=== PATIENT | female | born 1925 | race Caucasian/White ===

== ENCOUNTER 2016-10-09 17:50 | Inpatient (IN) | payer MEDICARE ==
[~2016-10-09] VITALS: Ht 160 cm; Wt 72.7 kg
[2016-10-09] VITALS (7 sets, daily range): BP systolic 103–133; BP diastolic 49–72
--- NOTE | ~2016-10-09 | O ---
[place], [place] OPERATIVE NOTE [id number] UN[facility] #: [id number] ROOM: 528 DOCTOR: YOGESH CHEN,MERNA BIRTHDATE: [birth year] DOS: 10/09/2016 HISTORY OF PRESENT ILLNESS: This is an 89-year-old patient who presented with chief complaint of hematemesis, undergoing investigation. Her prolonged INR has been corrected. Coumadin has been placed on hold. PROCEDURE: Today's procedure part of investigation is panendoscopy plus biopsy and photographic series of the esophagus ulcers. PREMEDICATION: Versed and Diprivan. SCOPE: Olympus folding gastroscope Q10 video. REPORT: After putting the patient in the left lateral position and after application of lubricant to the scope, the scope was introduced. Thereafter, under direct visualization, I advanced through the length of esophagus without difficulty. Esophagus cervicothoracic distally carefully examined. Diffuse distal esophageal ulcerations were identified. Moderate size hiatal hernia noticed. Gastric pouch was entered. Gastritis seen. Duodenal bulb, second and third part within normal limits. Superficial biopsy of distal esophageal ulcer and scar was obtained for documentation avoiding deep tissue biopsy. The patient tolerated the procedure well. IMPRESSION: Diffuse distal esophageal ulcer, hiatal hernia, gastritis, status post biopsy. PLAN AND DISCUSSION: We are going to keep this patient on Protonix 40 mg IV b.i.d., sucralfate 2 grams to be sipped q.6h. at the bedside, Gaviscon 2 tablets chew p.c. meals, antireflux with elevation of the head of the bed. We will hold off anticoagulation today and tomorrow and clinical reassessment. MERNA ZUÑIGA MD CM:OPRECORD:OPERATIVE NOTE [id number] MERNA ZUÑIGA MD 12/02/16 0947 interface
--- NOTE | ~2016-10-09 | PR ---
[place], [place] PROGRESS NOTE NAME: ANTIONETTE ONEAL [facility] #: [id number] UNIT #: [id number] ROOM: 528 DOCTOR: SAVANNA MATSON MD BIRTHDATE: [birth year] DOS: 10/12/2016 I am seeing this patient on behalf of Dr. Harding. She is lying in bed. She has a mild cough with rattling chest. She is mildly short of breath, but does not complain of any chest pain or palpitations. She feels little stronger than when she came into the hospital. Her appetite is fair. PHYSICAL EXAMINATION: GENERAL: Reveals a patient who is alert, oriented. VITAL SIGNS: Pulse is irregular at 74 beats per minute, blood pressure 105/61, previous blood pressure was better. NECK: Normal JVP. CARDIOVASCULAR: Cardiac auscultation reveals irregular heart rate. No murmur, and she has rhonchi in both lungs with reduced breath sounds and 2+ edema in the left leg and 1+ in the right leg. LABORATORY DATA: Monitor shows atrial fibrillation with the rate in the 70-90s per minute. Chest x-ray demonstrated no pulmonary edema, heart was of normal size. IMPRESSION: 1. This patient has chronic atrial fibrillation with controlled ventricular rate. 2. There is no evidence of heart failure. Edema in the lower extremities is likely to be noncardiac. Serum albumin was 3.0 on admission, hypoalbuminemia is not a cause for this edema. No new recommendations are offered. SAVANNA MATSON MD CM:PNTRANS [id number] SAVANNA MATSON MD 11/19/16 1054 interface
--- NOTE | ~2016-10-09 | DS ---
[place], [place] DISCHARGE SUMMARY NAME: ANTIONETTE ONEAL [facility] #: [id number] UNIT #: [id number] ROOM: 528 DOCTOR: CHARLIE CORRIGAN MD BIRTHDATE: [birth year] DOS: 10/15/2016 DISCHARGE DIAGNOSES: 1. Atrial fibrillation with rapid ventricular response. 2. Urinary tract infection with Klebsiella and Enterococcus faecalis. 3. Esophageal ulcer, status post gastrointestinal bleed. 4. T10 compression fracture, refused vertebroplasty. 5. Adult failure to thrive. 6. Hypokalemia. 7. Asthmatic bronchitis. HOSPITAL COURSE: This patient is 89 years old, comes in with cough and shortness of breath and not feeling good. She was treated with Tamiflu recently, but continued to have pain, also continued to have pain in the middle of the back. She was diagnosed with acute compression fracture of T10. She also had AFib with rapid ventricular response, UTI with Klebsiella pneumoniae and Enterococcus faecalis. Adjustments and antibiotics were made. Her Coumadin was put on hold. Fresh frozen plasma and vitamin K was given. ProTime has come down and normalized. Dr. Harding and Dr. Gomez has seen the patient. Dr. Harding is aware of the fact that the patient is not on Coumadin right now, will restart at a later date when the esophageal ulcer is resolved. She will take medications for about a month and then restart the medicine at that time. A PICC line will be placed. The patient was scheduled for a vertebroplasty, but refused. Social Service was consulted and the patient to go to a rehab center today. DISCHARGE MEDICATIONS: Discharge medications will be Xopenex 0.63 q.4 hours, metoprolol 50 t.i.d., digoxin 0.125 daily p.o., Colace 100 mg daily, Carafate 2 grams q.i.d., warfarin is on hold, Xanax 0.25 twice a day p.r.n., potassium 10 daily, lovastatin 10 daily, multivitamin with iron and folic acid 1 tablet daily, Biofreeze daily p.r.n. to the back, [place] 7.5 q.i.d. p.r.n., omeprazole 40 daily, Lasix 40 daily, vancomycin 1500 mg daily 7 doses, Rocephin 1 g IV daily for 7 more doses. The discontinued meds are Tribenzor and warfarin, instead she is placed on losartan 100 mg daily. Please do a CBC, basic, digoxin level in a week and please call Dr. Harding as regards to when the Coumadin needs to be restarted. [place], [place] DISCHARGE SUMMARY NAME: ANTIONETTE ONEAL UNIT #: [id number] ROOM: 528 DOCTOR: CHARLIE CORRIGAN MD BIRTHDATE: [birth year] CHARLIE CORRIGAN MD CM:DISCHARG [id number] CHARLIE CORRIGAN MD 10/16/16 0141 interface
--- NOTE | ~2016-10-09 | WRIGHTHP ---
[place], [place] PATIENT HISTORY AND PHYSICAL EXAM NAME: ANTIONETTE ONEAL [facility] #: [id number] UNIT #: [id number] ROOM: 528 DOCTOR: CHARLIE CORRIGAN MD BIRTHDATE: [birth year] DOS: 10/09/2016 HISTORY OF PRESENT ILLNESS: The patient is 89 years old. This patient is very well known to us. She called about 3 days ago and stated that she was having aches and pains all over, low-grade fever, nausea, emesis, and some diarrhea. She was prescribed Tamiflu, but then yesterday, started developing severe back pain in the middle of the back, mostly when she coughs. She does not have any chest pains or palpitations, but when she arrived to the Emergency Room, she was also found to have AFib with rapid ventricular response. She denies having any chest pains this morning. PAST MEDICAL HISTORY: Significant for: 1. Frailty with falls. 2. Repeated UTIs. 3. Adult failure to thrive. 4. Benign hypertension. 5. Chronic atrial fibrillation. 6. Osteoarthritis of hips, knees, and low back. 7. Small vessel disease of brain. 8. Mixed hyperlipidemia. MEDICATIONS: Medications that she is on are Xanax 0.25 b.i.d., Nexium 40 daily, Lasix 40 daily, [place] 7.5 q.i.d., lovastatin 10 daily, multivitamin one tablet daily, Tribenzor 1 tablet daily, potassium 10 daily, warfarin 2.5 daily. SOCIAL HISTORY: Nonsmoker, does not using alcohol. Lives at home alone. PHYSICAL EXAMINATION: GENERAL: She is awake and alert and oriented. VITAL SIGNS: Blood pressure is 115/61, pulse of 82, respirations 18. NECK: Supple. No lymph nodes. LUNGS: Diminished breath sounds. No wheezes, rales, or rhonchi heard. HEART: Regular. ABDOMEN: Obese, soft, nontender. EXTREMITIES: Without any edema. BACK: Some tenderness across the middle of the back. ASSESSMENT AND PLAN: 1. The patient admitted with atrial fibrillation with rapid ventricular response. IV Cardizem was given in the Emergency Room. Dr. Harding was consulted. He already gave her Lopressor and digoxin was also added. This morning, her heart rate is actually on the low side, so we will cut back on the metoprolol dosage, probably avoid; also discontinue the digoxin. 2. Benign hypertension. Restart Cozaar, but avoid hydrochlorothiazide and Norvasc. 3. Acute back pain, possibly from a compression fracture. X-ray of the thoracic spine will be ordered. MRI has been ordered of the thoracic spine, but unfortunately it is a long weekend and we may not be able to get the MRI done for the next few days. So x-ray of the thoracic spine will be ordered. The [place], [place] PATIENT HISTORY AND PHYSICAL EXAM [facility]: [id number] UN[facility] #: [id number] ROOM: 528 DOCTOR: CHARLIE CORRIGAN MD BIRTHDATE: [birth year] patient is already on pain medications. PT, OT consult and a Social Service consult also we need to be obtained for snf placement, which the patient has refused in the past. 4. Chronic long-term use of anticoagulants. Protime on the high side. Coumadin is on hold. We will recheck the protime. CHARLIE CORRIGAN MD CM:HISPHYS:PATIENT HISTORY AND PHYSICAL EXAMINATION 8 CHARLIE CORRIGAN MD 10/10/1628 interface
--- NOTE | ~2016-10-09 | CON ---
[place], [place] REPORT OF CONSULTATION NAME: ANTIONETTE ONEAL [facility] #: [id number] UNIT #: [id number] ROOM: 528 [facility] BIRTH[facility]: [birth year] DOS: HISTORY OF PRESENT ILLNESS: The patient is very well known to me, chronic patient is an 89-year-old with persistent atrial fibrillation on chronic Coumadin therapy. The patient had a low grade fever. She is having aches and pains all over. The patient developed severe back pain in the middle of her back, mostly when she is coughing. Does not have any other chest pain or palpitations. When she arrived, the patient was found to be in rapid atrial fibrillation. Denies having any chest pain or shortness of breath. The patient has been evaluated and GI consult has been obtained and they had an EGD basically revealing hiatal hernia and possible ulceration. PAST MEDICAL HISTORY: Significant for repeated UTIs, frequent falls, diastolic heart failure, persistent atrial fibrillation and mixed hyperlipidemia. MEDICATIONS: The patient is on Xanax, Nexium, Lasix, [place], lovastatin, multivitamin, esomeprazole, potassium, Coumadin. SOCIAL HISTORY: Nonsmoker, does not use alcohol, lives at home alone, being followed by her daughter and son. REVIEW OF SYSTEMS: CONSTITUTIONAL: No fever, no chills. HEENT: No visual disturbances. Does have hearing problems. NEUROLOGICAL: No syncope. CARDIOVASCULAR: Has palpitations. RESPIRATORY: Has chronic dyspnea with exertion. EXTREMITIES: Have intermittent bilateral leg edema. All other review of systems are negative. PHYSICAL EXAMINATION: GENERAL: The patient awake, alert and oriented. Heart rate is much better controlled when she was in atrial fibrillation earlier. VITAL SIGNS: Blood pressure is 115/60, pulse rate is 88, 96% on room air. NECK: Supple, no JVD. LUNGS: Diminished breath sounds. HEART: Sounds are irregularly irregular. ABDOMEN: Soft, nontender. NEUROLOGIC: Stable. EXTREMITIES: About 2+ edema. LABORATORY DATA: Hemoglobin 10.3, hematocrit 30.4, potassium is 3.1. Electrolytes are normal. Troponin is negative. The last INR was yesterday at 2.6. IMPRESSION: The patient with persistent atrial fibrillation with rapid ventricular response, anemia, peptic ulcer disease. RECOMMENDATIONS: As per the GI, continue the Carafate, continue the Protonix, simvastatin, diltiazem, metoprolol and adjust the metoprolol and wean off the [place], [place] REPORT OF CONSULTATION NAME: ANTIONETTE ONEAL UNIT #: [id number] ROOM: 528 DOCTOR: YARA BENTON MD BIRTHDATE: [birth year] Cardizem drip, losartan and Lasix. Keep the INR little bit on the lower side, probably around 2 when it is okay with GI and we will follow up. YARA BENTON MD CM:CONSTR:REPORT OF CONSULTATION 0723 11/19/16 1103 interface
--- NOTE | ~2016-10-09 | PR ---
[place], [place] PROGRESS NOTE NAME: ANTIONETTE ONEAL [facility] #: [id number] UNIT #: [id number] ROOM: 528 DOCTOR: CHARLIE CORRIGAN MD BIRTHDATE: [birth year] DOS: SUBJECTIVE: The patient is coughing a lot of whitish mucus now. Cough is quite wet sounding. OBJECTIVE: VITAL SIGNS: Graphic trend shows a pressure of 112/54, pulse of 86, respirations 18, temperature 97.4. LUNGS: Diminished breath sounds, a few scattered rhonchi heard. HEART: Irregular. ABDOMEN: Obese, soft. EXTREMITIES: No edema. ASSESSMENT AND PLAN: 1. Atrial fibrillation with rapid ventricular response, under control now with medications. 2. Esophageal ulcer with coffee-ground emesis. The patient is off Coumadin. Discuss with Dr. Gomez and Dr. Valenzuela. The patient's CBC does not show any further drop in the hematocrit, hemoglobin is 10.5. 3. Acute asthmatic bronchitis. Chest x-ray was negative. We will go ahead and arrange repeat chest x-ray. Low-dose IV steroids will be added and continue Rocephin. 4. UTI with gram-negative bacteria, more than 100,000, no identification available, we will adjust antibiotics after we get the culture reports back. 5. Hypokalemia of 2.8, potassium supplementation will be ordered. CHARLIE CORRIGAN MD CM:PNTRANS [id number] CHARLIE CORRIGAN MD 10/12/161957 interface
--- NOTE | ~2016-10-09 | CON ---
[place], [place] REPORT OF CONSULTATION NAME[facility] [id number] UNIT #: [id number] ROOM: 528 DOCTOR: MERNA ZUÑIGA MD BIRTHDATE: [birth year] DOS: HISTORY OF PRESENT ILLNESS: The patient is an 89-year-old who was presented with hematemesis and has been on anticoagulant Coumadin. Coumadin has been on hold; however, her INR has been prolonged 4.3 with PT of 47. The patient has been given vitamin K and fresh frozen plasma because of hematemesis. The patient continued with cough and no acute chest x-ray finding was noticed. Urinalysis was unremarkable except for 1+ blood and 2+ bacteria. Electrolytes were balanced, potassium of 3.1 has been addressed. Her platelet count remained 326. Her INR corrected to 2.6 at 2:30 and is expected to have been improved by now, which is 5 o'clock. PAST MEDICAL HISTORY: Associated with hypertension, atrial fibrillation, hyperlipidemia and UTI. FAMILY HISTORY: Noncontributory. MEDICATIONS: Medication list has been reviewed. PAST SURGICAL HISTORY: Hip and cholecystectomy and left arm orthopedic repairs. ALLERGIES: TO PENICILLIN. SOCIAL HISTORY: Nonsmoker, nonalcohol consumer. REVIEW OF SYSTEMS: HEENT: Denies double vision or blurred vision. RESPIRATORY: Denies shortness of breath. Have cough. CARDIOVASCULAR: Denies chest pain. DIGESTIVE SYSTEM: Hematemesis. NEUROMUSCULOSKELETAL: Denies muscle wasting or tremens; however, she has had fragility of her ambulation. PHYSICAL EXAMINATION: VITAL SIGNS: Stable. GENERAL: Alert and oriented. HEENT: Head normocephalic, nontraumatic. Mouth and buccal mucosa benign. NECK: Supple, no thyromegaly, no cervical lymphadenopathy. CHEST: Symmetric anatomy, equal expansion. Decreased air entry bilaterally. HEART: Atrial fibrillation, with moderate ventricular response. ABDOMEN: Soft. No hepato-organomegaly. Bowel sounds present. No pulsatile mass. EXTREMITIES: No cyanosis, no pedal edema. NEUROLOGICAL: Alert, oriented to time, place and person. IMPRESSION: Hematemesis, history of Coumadin. Coumadin on hold, prolonged INR, status post fresh frozen plasma, status post vitamin K and correction of the above. PLAN AND DISCUSSION: Since we have atrial fibrillation on board and the patient [place], [place] REPORT OF CONSULTATION NAME: ANTIONETTE ONEAL UNIT #: [id number] ROOM: 528 DOCTOR: MERNA ZUÑIGA MD BIRTHDATE: [birth year] has hematemesis, we are concerned as to how and when to start anticoagulation again for this, we have to rule out etiology of hemetemesis and for this, an endoscopy of upper tract is going to be organized. Other adjunctive diagnoses as identified in paragraph past medical and surgical history. Workup in progress, EGD is organized. MERNA ZUÑIGA MD CM:CONSTR:REPORT OF CONSULTATION 1711 10/11/16 8705 interface
--- NOTE | ~2016-10-09 | PR ---
[place], [place] PROGRESS NOTE NAME: ANTIONETTE ONEAL [facility] #: [id number] UNIT #: [id number] ROOM: 528 DOCTOR: CHARLIE CORRIGAN MD BIRTHDATE: [birth year] DOS: 10/13/2016 SUBJECTIVE: The patient has the cough. Does not have any new complaints. OBJECTIVE: VITAL SIGNS: Graphic trend shows a pressure of 124/69, pulse of 100, respirations 20, temperature 97.6. LUNGS: Diminished breath sounds, less wheezing this morning. HEART: Regular. ABDOMEN: Obese, soft. EXTREMITIES: Without any edema. Trace edema noticed in the sacral area. LABORATORY DATA: Urine culture shows Klebsiella pneumoniae and Enterococcus faecalis. Klebsiella pneumoniae is sensitive to the cephalosporin that he is on, for the Enterococcus faecalis may have to order vancomycin because the patient is allergic to PENICILLIN. ASSESSMENT AND PLAN: 1. Urinary tract infection with Klebsiella and Enterococcus faecalis, adjustments and antibiotics to be made. 2. Coffee ground emesis with the esophageal ulcer. The patient's Coumadin is on hold, on IV medications. 3. T10 compression fracture, which is acute. MRI of the thoracic spine is ordered and may require a vertebroplasty. 4. Hypokalemia. Supplementation was given yesterday and the labs this morning shows still low potassium at 2.9, further supplementation will be given. 5. Acute bronchitis with bronchospasm on IV steroids and antibiotics. 6. Failure to thrive. The patient to go to a custodial home. Social service will be consulted. CHARLIE CORRIGAN MD CM:PNTRANS [id number] CHARLIE CORRIGAN MD 10/13/16 2204 interface
--- NOTE | ~2016-10-09 | PR ---
[place], [place] PROGRESS NOTE [id number] #: [id number] ROOM: 528 DOCTOR: YARA BENTON MD BIRTHDATE: [birth year] DOS: SUBJECTIVE: A 24-hour events noted. Discussed with the nursing staff. Heart rate was significantly increased to 130s-140s yesterday. Metoprolol has been increased. Her blood pressure is much better 129/84. She was slightly wet and she received Lasix yesterday. Breathing is better. OBJECTIVE: VITAL SIGNS: Pulse rate of 102 with atrial fibrillation. NECK: Supple, elevated JVD. LUNGS: Diminished breath sounds. HEART: Sounds are irregularly irregular. ABDOMEN: Soft, nontender. NEUROLOGIC: Stable. LABORATORY DATA: Hemoglobin 9.5, hematocrit 28.1. Electrolytes are normal. Creatinine is 0.7. Last INR is 2.0. The repeat is still pending. IMPRESSION: The patient with atrial fibrillation with rapid ventricular response with gastrointestinal bleed. RECOMMENDATIONS: Continue the metoprolol 50 mg 3 times a day because of the significant rapid heart rate. Blood pressure is feasible. Continue the potassium and the Lasix. Continue the IV antibiotics and steroids. Resume the anticoagulation when feasible and I will follow up. YARA BENTON MD CM:PNTRANS 0721 0110 YARA BENTON MD 10/15/16 0109 interface
--- NOTE | ~2016-10-09 | PR ---
[place], [place] PROGRESS NOTE NAME: ANTIONETTE ONEAL [facility] #: [id number] UNIT #: [id number] ROOM: 528 DOCTOR: CHARLIE CORRIGAN MD BIRTHDATE: [birth year] DOS: 10/11/2016 SUBJECTIVE: The patient is doing fine without any complaints this morning. She had a terrible last 24 hours where she had coffee-ground emesis, had to be taken for endoscopy, had episodes of up and down heart rate for which she had to be placed back on IV Cardizem, which was later discontinued when the heart rate dropped down. OBJECTIVE: VITAL SIGNS: Blood pressure is 115/58, pulse of 88, respirations 20, and temperature 98.1. LUNGS: Diminished breath sounds. HEART: Irregular. ABDOMEN: Soft. EXTREMITIES: Without any edema. ASSESSMENT AND PLAN: 1. Acute back pain with compression fracture of the T10. The patient's pain is under control, so I am not changing any medicines. 2. Esophageal ulcer with coffee-ground emesis, on Carafate and Protonix. The patient's Coumadin is on hold and will continue to remain on hold. 3. Chronic atrial fibrillation with rapid ventricular response, and at times becomes bradycardic, partly initiated by her anxiety. Discussed with Dr. Harding. He advised continued medical management. 4. Hypercoagulable state. Protime has come down to 2.0, Coumadin again on hold. 5. Recent viral syndrome, stable. CHARLIE CORRIGAN MD CM:PNTRANS [phone] CHARLIE CORRIGAN MD 10/11/162150 interface
--- NOTE | ~2016-10-09 | PR ---
[place], [place] PROGRESS NOTE NAME: ANTIONETTE ONEAL [facility] #: [id number] UNIT #: [id number] ROOM: 528 DOCTOR: CHARLIE CORRIGAN MD BIRTHDATE: [birth year] DOS: 10/15/2016 SUBJECTIVE: The patient is about the same, does not have any new complaints. Denies any chest pains, palpitations, or shortness of breath. PHYSICAL EXAMINATION: VITAL SIGNS: Pressure is 138/62, pulse of 186, respirations 18, temperature 98.2. LUNGS: Diminished breath sounds. HEART: Irregular. ABDOMEN: Obese, soft. EXTREMITIES: Without any edema. ASSESSMENT AND PLAN: 1. Chronic atrial fibrillation with rapid ventricular response, controlled. 2. Esophageal ulcer. We will restart her medications pretty soon. 3. T10 fracture. The patient was scheduled for vertebroplasty, but refused. 4. Failure to thrive. The patient to go to a alf for rehab today. PICC line will be placed for IV antibiotics for her UTI. CHARLIE CORRIGAN MD CM:PNTRANS [id number] [id number] CHARLIE CORRIGAN MD 10/16/16 0116 interface
--- NOTE | ~2016-10-09 | PR ---
[place], [place] PROGRESS NOTE NAME: ANTIONETTE ONEAL [facility] #: [id number] UNIT #: [id number] ROOM: 528 DOCTOR: YARA BENTON MD BIRTHDATE: [birth year] DOS: 10/13/2016 SUBJECTIVE: 24-hour events noted. Discussed with the nursing staff, the patient's cardiac status appears to be stable. Hemodynamically stable. OBJECTIVE: VITAL SIGNS: Blood pressure is also stable. Heart rate is well controlled to be 78 in atrial fibrillation, which is persistent, pressure is 120/80. HEENT: Unremarkable. NECK: Supple, no JVD. LUNGS: Diminished breath sounds. HEART: Sounds are irregularly irregular. ABDOMEN: Soft, nontender. LABORATORY DATA: Hemoglobin 9.5, hematocrit 28.1. Electrolytes are all normal. IMPRESSION: Acute back pain with compression fracture of T10. Pain is under control, peptic ulcer disease, coffee ground emesis, Carafate and Protonix. The patient's Coumadin is on hold. Chronic atrial fibrillation. Heart rate is very well controlled. The patient to continue the present care. Hypercoagulable. INR is 2.0, the last one. RECOMMENDATIONS: Resume the Coumadin when feasible and okay by GI and there is no active acute bleed. The patient's CHADS score is elevated. It is significantly high and she has persistent AFib. Heart rate is controlled. Continue the beta blockers, continue antibiotics as ordered. Continue the pain medications for the back pain and I will follow up. YARA BENTON MD CM:PNTRANS [phone] YARA BENTON MD 11/19/16 1100 interface
--- NOTE | ~2016-10-09 | PR ---
[place], [place] PROGRESS NOTE NAME: ANTIONETTE ONEAL [facility] #: [id number] UNIT #: [id number] ROOM: 528 DOCTOR: CHARLIE CORRIGAN MD BIRTHDATE: [birth year] DOS: SUBJECTIVE: The patient is doing fine without any complaints today. She does have periodic episodes where her heartbeat goes faster. She is currently in AFib with a controlled heart rate of below 90s. OBJECTIVE: VITAL SIGNS: Graphic trend shows a pressure of 129/84, pulse of 102, respirations 20, temperature 97.8. LUNGS: Diminished breath sounds, clear. HEART: Irregular. ABDOMEN: Soft, nontender. EXTREMITIES: Without any edema. ASSESSMENT AND PLAN: 1. Esophageal ulcer, status post GI bleed. Her Coumadin continues to be on hold. 2. Chronic atrial fibrillation with rapid ventricular response. This is also compounded by her anxiety. 3. UTI with Enterococcus faecalis and Klebsiella pneumoniae, on IV antibiotics. The patient will need placement to rehab center for continued IV antibiotics and PT, OT. 4. Failure to thrive. The patient is receiving PT, OT and social service has been consulted for placement to rehab center. 5. Hypokalemia, supplementation was given. Repeat potassium is pending. She is going for a vertebroplasty today of T10. CHARLIE CORRIGAN MD CM:PNTRANS [phone] CHARLIE CORRIGAN MD 10/15/16 0457 interface
--- NOTE | ~2016-10-09 | PR ---
[place], [place] PROGRESS NOTE NAME: ANTIONETTE ONEAL [facility] #: [id number] UNIT #: [id number] ROOM: 528 DOCTOR: SAVANNA MATSON MD BIRTHDATE: [birth year] DOS: 10/15/2016 SUBJECTIVE: I am seeing this patient on behalf of Dr. Harding. This elderly lady has atrial fibrillation and also had a cough and some shortness of breath. She has not had any palpitations, but has a cough which is nonproductive. Her chest seems to rattle quite a bit when she coughs. No fever or chills. She has no orthopnea. PHYSICAL EXAMINATION: GENERAL: The patient is very pleasant, alert. She looks more younger than her age. VITAL SIGNS: Pulse is irregular at 80 beats per minute, blood pressure 108/64. NECK: JVP is normal. AJR is negative. CARDIOVASCULAR: Auscultation reveals irregular heart rate at about 75-80 beats per minute. She has lot of rhonchi and some crackles bilaterally with mildly reduced breath sounds and has 1 to 2+ easily pitting edema. IMPRESSION: 1. Chronic atrial fibrillation with controlled ventricular rate. 2. Acute chest infection. 3. Edema in the lower extremities is noncardiac. No new recommendations. SAVANNA MATSON MD CM:PNTRANS [id number] SAVANNA MATSON MD 10/15/16 2324 interface
[~2016-10-09 17:50] MED LIST: 'TENORMIN50 MG PO; ATENOLOL50 MG PO; BIOFREEZE118 ML TP; BSC; CEFUROXIME AXE250 MG PO; CEPHALEXIN500 M1 PO; CERTAVITE-ANTI1 EACH PO; CIPRO250 MG PO; COUMADIN2.5 M1 PO; COUMADIN5 M2 PO; DELTASONE5 MG PO; DUONEB 3 MG/3 ML3 M1 NEB; FEOSOL325 MG PO; FUROSEMIDE40 MG PO; IRBESARTAN300 M1 PO; K-DUR20 MEQ PO; KEFLEX500 MG PO; LABETALOL HCL100 MG PO; LASIX40 MG PO; LOVASTATIN10 MG PO; LOVASTATIN40 MG PO; NEBULIZER; NEXIUM40 MG PO; NORCO 7.5-3251 EACH PO; NORVASC10 MG PO; PHENERGAN W/DM120 ML PO; PLAVIX75 MG PO; PREDNICOT10 MG PO; PROAIR HFA0.09 MG/AC INH; PULMICORT RESP0.5 MG NEB; ROBITUSSIN5 ML PO; TRIBENZOR; TRIBENZOR 20-51 EACH PO; TRIBENZOR 40-11 EAC1 PO; VIBRAMYCIN100 MG PO; VICODIN 5/500 505 MG PO; VITAMINS & MINE1 TAB PO; XANAX0.5 MG PO; ZOFRAN ODT4 MG SL; [UNRECOGNIZED DRUG - OTHER]
[2016-10-09 19:13] LABS: BASO % 0.1 % (0.0-1.0); EOS % 0.1 % (1.0-4.0); HEMATOCRIT 33.1 % (37.0-47.0); LYMPH # 0.6 10*3/uL (1.3-4.4); LYMPH % 6.6 % (27.0-41.0); MEAN CELL VOLUME 97.6 fl (81.0-99.0); MEAN CORPUSCULAR HGB 32.4 pg (27.0-31.0); MEAN CORPUSCULAR HGB CONC 33.2 g/dl (33.0-37.0); MEAN PLATELET VOLUME 8.5 fl (9.6-12.3); MONO # 0.6 10*3/uL (0.1-1.0); MONO % 6.4 % (3.0-9.0); NEUT # 8.1 10*3/uL (2.3-7.9); NEUT % 86.4 % (47.0-73.0); PLATELET COUNT AUTOMATED 359 10*3/uL (130-400); RED BLOOD COUNT 3.39 10*6/uL (4.10-5.10); RED CELL DISTRI WIDTH 11.9 % (0-14.5); WHITE BLOOD COUNT 9.4 10*3/uL (4.8-10.8)
[2016-10-09 19:22] LABS: INTERNATIONAL NORM RATIO 4.3 (2.0-3.5); PROTHROMBIN TIME 47.9 SECONDS (9.0-12.4)
[2016-10-09 19:27] LABS: ALKALINE PHOSPHATASE 82 U/L (45-117); BILIRUBIN, TOTAL 0.4 mg/dl (0.2-1.0); BUN 27 mg/dl (7-24); CARBON DIOXIDE 30 mmol/L (21-32); CHLORIDE 95 mmol/L (98-107); EST GLOM FILT AFRICAN AMERICAN > 60 ml/min; GLUCOSE 124 mg/dL (65-99); POTASSIUM 3.8 mmol/L (3.5-5.1); SGOT/AST 23 IU/L (3-35); SGPT/ALT 14 U/L (12-78); SODIUM 135 mmol/L (136-145); TOTAL PROTEIN 7.1 gm/dL (6.4-8.2)
[2016-10-09 22:44] LABS: BILIRUBIN NEGATIVE (NEGATIVE); BLOOD 1+ (NEGATIVE); CLARITY SL CLOUDY (CLEAR); COLOR YELLOW (YELLOW); GLUCOSE NEGATIVE (NEGATIVE); KETONE NEGATIVE (NEGATIVE); LEUKO ESTERASE 2+ (NEGATIVE); NITRITE NEGATIVE (NEGATIVE); PROTEIN NEGATIVE (NEGATIVE); UROBILINOGEN 0.2 E.U./dl (0.2-1.0)
[2016-10-09 22:52] LABS: BACTERIA 2+; URINE REFLEX COMMENT YES (NO); WBC TNTC wbc/hpf (0-5)
[2016-10-10] VITALS (11 sets, daily range): BP systolic 92–130; BP diastolic 56–82
[2016-10-10 05:55] LABS: BASO % 0.1 % (0.0-1.0); EOS # 0.1 10*3/uL (0.0-0.4); EOS % 0.6 % (1.0-4.0); HEMATOCRIT 30.7 % (37.0-47.0); HEMOGLOBIN 10.1 g/dl (12.0-16.0); IG # 0.1 10*3/uL (0.0-0.1); LYMPH # 1.1 10*3/uL (1.3-4.4); LYMPH % 12.1 % (27.0-41.0); MEAN CELL VOLUME 98.4 fl (81.0-99.0); MEAN CORPUSCULAR HGB 32.4 pg (27.0-31.0); MEAN CORPUSCULAR HGB CONC 32.9 g/dl (33.0-37.0); MEAN PLATELET VOLUME 8.7 fl (9.6-12.3); MONO # 0.9 10*3/uL (0.1-1.0); MONO % 10.7 % (3.0-9.0); NEUT # 6.6 10*3/uL (2.3-7.9); NEUT % 75.8 % (47.0-73.0); PLATELET COUNT AUTOMATED 344 10*3/uL (130-400); RED BLOOD COUNT 3.12 10*6/uL (4.10-5.10); RED CELL DISTRI WIDTH 11.9 % (0-14.5); WHITE BLOOD COUNT 8.7 10*3/uL (4.8-10.8)
[2016-10-10 06:06] LABS: BUN 24 mg/dl (7-24); CARBON DIOXIDE 28 mmol/L (21-32); CHLORIDE 98 mmol/L (98-107); EST GLOM FILT AFRICAN AMERICAN > 60 ml/min; GLUCOSE 106 mg/dL (65-99); POTASSIUM 3.1 mmol/L (3.5-5.1); SODIUM 136 mmol/L (136-145)
[2016-10-10 14:53] LABS: INTERNATIONAL NORM RATIO 2.6 (2.0-3.5); PROTHROMBIN TIME 27.9 SECONDS (9.0-12.4)
[2016-10-11] VITALS: BP 115/58
[2016-10-11 06:49] LABS: BASO % 0.1 % (0.0-1.0); EOS % 0.1 % (1.0-4.0); HEMATOCRIT 30.4 % (37.0-47.0); HEMOGLOBIN 10.3 g/dl (12.0-16.0); LYMPH # 1.2 10*3/uL (1.3-4.4); MEAN CELL VOLUME 96.2 fl (81.0-99.0); MEAN CORPUSCULAR HGB 32.6 pg (27.0-31.0); MEAN CORPUSCULAR HGB CONC 33.9 g/dl (33.0-37.0); MEAN PLATELET VOLUME 8.3 fl (9.6-12.3); MONO # 0.7 10*3/uL (0.1-1.0); MONO % 9.9 % (3.0-9.0); NEUT # 5.1 10*3/uL (2.3-7.9); NEUT % 72.6 % (47.0-73.0); PLATELET COUNT AUTOMATED 315 10*3/uL (130-400); RED BLOOD COUNT 3.16 10*6/uL (4.10-5.10); RED CELL DISTRI WIDTH 11.9 % (0-14.5); WHITE BLOOD COUNT 7.1 10*3/uL (4.8-10.8)
[2016-10-11 07:21] LABS: PROTHROMBIN TIME 22.1 SECONDS (9.0-12.4)
[2016-10-11 08:00] VITALS: BP 109/66
[2016-10-11 12:00] VITALS: BP 108/52
[2016-10-11 16:00] VITALS: BP 109/51
[2016-10-11 20:00] VITALS: BP 109/51
[2016-10-12] VITALS: BP 112/54
[2016-10-12 07:19] LABS: BASO % 0.1 % (0.0-1.0); EOS % 0.1 % (1.0-4.0); HEMATOCRIT 30.9 % (37.0-47.0); HEMOGLOBIN 10.5 g/dl (12.0-16.0); LYMPH # 1.2 10*3/uL (1.3-4.4); LYMPH % 15.1 % (27.0-41.0); MEAN CORPUSCULAR HGB 32.6 pg (27.0-31.0); MEAN PLATELET VOLUME 8.5 fl (9.6-12.3); MONO # 0.7 10*3/uL (0.1-1.0); MONO % 8.8 % (3.0-9.0); NEUT # 6.1 10*3/uL (2.3-7.9); NEUT % 75.4 % (47.0-73.0); PLATELET COUNT AUTOMATED 296 10*3/uL (130-400); RED BLOOD COUNT 3.22 10*6/uL (4.10-5.10); RED CELL DISTRI WIDTH 11.9 % (0-14.5); WHITE BLOOD COUNT 8.1 10*3/uL (4.8-10.8)
[2016-10-12 07:32] LABS: BUN 22 mg/dl (7-24); CARBON DIOXIDE 24 mmol/L (21-32); CHLORIDE 98 mmol/L (98-107); EST GLOM FILT AFRICAN AMERICAN > 60 ml/min; GLUCOSE 90 mg/dL (65-99); POTASSIUM 2.8 mmol/L (3.5-5.1); SODIUM 135 mmol/L (136-145)
[2016-10-12 08:00] VITALS: BP 118/76
[2016-10-12 12:00] VITALS: BP 129/72
[2016-10-12 16:00] VITALS: BP 105/61
[2016-10-12 20:00] VITALS: BP 115/53
[2016-10-13] VITALS: BP 125/67
[2016-10-13 07:24] LABS: HEMATOCRIT 28.1 % (37.0-47.0); HEMOGLOBIN 9.5 g/dl (12.0-16.0); LYMPH # 0.9 10*3/uL (1.3-4.4); LYMPH % 20.9 % (27.0-41.0); MEAN CELL VOLUME 94.3 fl (81.0-99.0); MEAN CORPUSCULAR HGB 31.9 pg (27.0-31.0); MEAN CORPUSCULAR HGB CONC 33.8 g/dl (33.0-37.0); MEAN PLATELET VOLUME 8.5 fl (9.6-12.3); MONO # 0.3 10*3/uL (0.1-1.0); MONO % 6.4 % (3.0-9.0); NEUT # 3.3 10*3/uL (2.3-7.9); NEUT % 72.3 % (47.0-73.0); PLATELET COUNT AUTOMATED 297 10*3/uL (130-400); RED BLOOD COUNT 2.98 10*6/uL (4.10-5.10); RED CELL DISTRI WIDTH 11.7 % (0-14.5); WHITE BLOOD COUNT 4.5 10*3/uL (4.8-10.8)
[2016-10-13 07:48] LABS: BUN 17 mg/dl (7-24); CARBON DIOXIDE 27 mmol/L (21-32); CHLORIDE 97 mmol/L (98-107); EST GLOM FILT AFRICAN AMERICAN > 60 ml/min; GLUCOSE 158 mg/dL (65-99); POTASSIUM 2.9 mmol/L (3.5-5.1); SODIUM 132 mmol/L (136-145)
[2016-10-13 08:00] VITALS: BP 124/69
[2016-10-13 11:49] VITALS: BP 106/58
[2016-10-13 16:00] VITALS: BP 90/50
[2016-10-13 20:00] VITALS: BP 114/47
[2016-10-14] VITALS (7 sets, daily range): BP systolic 94–129; BP diastolic 58–474
[2016-10-14 07:55] LABS: PROTHROMBIN TIME 10.8 SECONDS (9.0-12.4)
[2016-10-14 08:53] LABS: HEMATOCRIT 30.8 % (37.0-47.0); HEMOGLOBIN 10.8 g/dl (12.0-16.0); IG # 0.1 10*3/uL (0.0-0.1); LYMPH # 1.4 10*3/uL (1.3-4.4); LYMPH % 19.7 % (27.0-41.0); MEAN CELL VOLUME 93.6 fl (81.0-99.0); MEAN CORPUSCULAR HGB 32.8 pg (27.0-31.0); MEAN CORPUSCULAR HGB CONC 35.1 g/dl (33.0-37.0); MEAN PLATELET VOLUME 8.4 fl (9.6-12.3); MONO # 0.4 10*3/uL (0.1-1.0); MONO % 5.4 % (3.0-9.0); NEUT # 5.2 10*3/uL (2.3-7.9); NEUT % 74.1 % (47.0-73.0); PLATELET COUNT AUTOMATED 292 10*3/uL (130-400); RED BLOOD COUNT 3.29 10*6/uL (4.10-5.10); RED CELL DISTRI WIDTH 11.7 % (0-14.5); WHITE BLOOD COUNT 7.1 10*3/uL (4.8-10.8)
[2016-10-14 09:23] LABS: BUN 14 mg/dl (7-24); CARBON DIOXIDE 24 mmol/L (21-32); CHLORIDE 97 mmol/L (98-107); EST GLOM FILT AFRICAN AMERICAN > 60 ml/min; GLUCOSE 99 mg/dL (65-99); SODIUM 131 mmol/L (136-145)
[2016-10-14 09:24] LABS: POTASSIUM 4.2 mmol/L (3.5-5.1)
[2016-10-15] VITALS: BP 108/55
[2016-10-15 04:30] VITALS: BP 108/64
[2016-10-15 08:00] VITALS: BP 138/62
[2016-10-15] MEDS ORDERED: METOPROLOL TART50 M1 PO (09:05)
[2016-10-15] MEDS ORDERED: Carafate1 GM PO (09:05)
[2016-10-15] MEDS ORDERED: XOPENEX0.63 MG NEB (09:05)
[2016-10-15] MEDS ORDERED: DOK COLACE100 MG PO (09:05)
[2016-10-15] MEDS ORDERED: LOSARTAN POTAS100 M1 PO (09:10)
[2016-10-15 09:42] LABS: HEMATOCRIT 32.7 % (37.0-47.0); HEMOGLOBIN 11.2 g/dl (12.0-16.0); IG # 0.1 10*3/uL (0.0-0.1); LYMPH # 1.9 10*3/uL (1.3-4.4); LYMPH % 19.5 % (27.0-41.0); MEAN CELL VOLUME 95.3 fl (81.0-99.0); MEAN CORPUSCULAR HGB 32.7 pg (27.0-31.0); MEAN CORPUSCULAR HGB CONC 34.3 g/dl (33.0-37.0); MEAN PLATELET VOLUME 8.6 fl (9.6-12.3); MONO # 0.7 10*3/uL (0.1-1.0); MONO % 7.5 % (3.0-9.0); NEUT % 72.2 % (47.0-73.0); PLATELET COUNT AUTOMATED 294 10*3/uL (130-400); RED BLOOD COUNT 3.43 10*6/uL (4.10-5.10); RED CELL DISTRI WIDTH 11.8 % (0-14.5); WHITE BLOOD COUNT 9.7 10*3/uL (4.8-10.8)
[2016-10-15 10:21] LABS: BUN 14 mg/dl (7-24); CARBON DIOXIDE 27 mmol/L (21-32); CHLORIDE 97 mmol/L (98-107); EST GLOM FILT AFRICAN AMERICAN > 60 ml/min; GLUCOSE 83 mg/dL (65-99); POTASSIUM 3.7 mmol/L (3.5-5.1); SODIUM 135 mmol/L (136-145)
[2016-10-15 12:00] VITALS: BP 130/72; BP 138/62
[2016-10-15 16:00] VITALS: BP 126/76; BP 130/72
[2016-10-15 20:00] VITALS: BP 90/71
[2016-10-16] VITALS: BP 119/61
[2016-10-16 08:00] VITALS: BP 128/66
== END 2016-10-16 10:00 | disposition other institution (70) | DRG 551 ==
LOC: ED 17:50 → 5E 20:04 → EDHOLD 20:04 → 5E 20:27
PROVIDERS: Internal Medicine; Internal Medicine Gastroenterology; Registered Nurse
PROC: 0DB58ZX Excision of Esophagus, Via Natural or Artificial Opening Endoscopic, Diagnostic (ICD-10-PCS; principal; 2016-10-10)
PROC: 02HV33Z Insertion of Infusion Device into Superior Vena Cava, Percutaneous Approach (ICD-10-PCS; 2016-10-15)
DX: S22.079A Unspecified fracture of T9-T10 vertebra, initial encounter for closed fracture (principal); K22.11 Ulcer of esophagus with bleeding; K27.4 Chronic or unspecified peptic ulcer, site unspecified, with hemorrhage; D68.59 Other primary thrombophilia; N39.0 Urinary tract infection, site not specified; I50.30 Unspecified diastolic (congestive) heart failure; I48.91 Unspecified atrial fibrillation; B95.2 Enterococcus as the cause of diseases classified elsewhere; B96.1 Klebsiella pneumoniae [K. pneumoniae] as the cause of diseases classified elsewhere; R62.7 Adult failure to thrive; E87.6 Hypokalemia; J45.909 Unspecified asthma, uncomplicated; B96.89 Other specified bacterial agents as the cause of diseases classified elsewhere; X58.XXXA Exposure to other specified factors, initial encounter; E78.2 Mixed hyperlipidemia; M17.0 Bilateral primary osteoarthritis of knee; M16.0 Bilateral primary osteoarthritis of hip; J20.9 Acute bronchitis, unspecified; I11.0 Hypertensive heart disease with heart failure; K44.9 Diaphragmatic hernia without obstruction or gangrene; D64.9 Anemia, unspecified; Z90.49 Acquired absence of other specified parts of digestive tract; Z79.899 Other long term (current) drug therapy; Z88.0 Allergy status to penicillin; Z79.01 Long term (current) use of anticoagulants; Z88.2 Allergy status to sulfonamides; Z88.1 Allergy status to other antibiotic agents

== ENCOUNTER 2017-01-01 13:57 | Inpatient (IN) | payer MEDICARE ==
[~2017-01-01] VITALS: Ht 162.5 cm; Wt 68.9 kg
--- NOTE | ~2017-01-01 | PR ---
[place], [place] PROGRESS NOTE [id number] #: [id number] ROOM: 409 DOCTOR: YARA BENTON MD BIRTHDATE: [birth year] DOS: 01/05/2017 SUBJECTIVE: 24-hour events noted. Discussed with the nursing staff. The patient was seen by Dr. Cleaning on my behalf yesterday. Hemodynamically appears to be much more stable. OBJECTIVE: VITAL SIGNS: Blood pressure is 160/100. She still has positive balance of 140. HEENT: Elevated JVD. LUNGS: Diminished breath sounds. HEART: Sounds are regular. ABDOMEN: Obese. EXTREMITIES: 3+ edema. NEUROLOGIC: Intermittent confusion. She is in atrial fibrillation, which is chronic. The patient is on Lasix, Eliquis, metoprolol, simvastatin, and antibiotics. IMPRESSION: Urinary tract infection, encephalopathy, chronic atrial fibrillation, history of systolic heart failure, failure to thrive, ejection fraction is about 35%-40%. RECOMMENDATIONS: Agree with the diuretics for comfort care and the patient is already on beta-blockers and anticoagulation and we will follow up. YARA BENTON MD CM:PNTRANS [id number] YARA BENTON MD 01/05/17 1028 interface
--- NOTE | ~2017-01-01 | CON ---
[place], [place] REPORT OF CONSULTATION [id number] #: [id number] ROOM: 409 DOCTOR: SAVANNA MATSON MD BIRTHDATE: [birth year] DOS: 01/04/2017 HISTORY OF PRESENT ILLNESS: This is an 89-year-old -[place] woman who lives in a long-term. She has been in this hospital previously. She apparently was brought here to the Emergency Department because of a confusional state. Apparently, she had received an Ambien according to Dr. Chichi Melendrez' notes. The patient is not able to give me any meaningful information, although she tries to answer every question. There is a mention of some nausea. At this time, she is refusing to order any food. PAST MEDICAL HISTORY: She has chronic atrial fibrillation, recurrent urinary tract infections, GI bleeding earlier this year, chronic back pain, and osteoporosis. Dr. Harding was asked to see this patient because of atrial fibrillation and edema. MEDICATIONS: Her long-term medications include digoxin, Colace, Marinol, omeprazole, iron, furosemide 20 daily, losartan 100 daily, lovastatin 10 daily, metoprolol 50 mg t.i.d., potassium chloride 40 mEq daily, Protonix 40 daily, Carafate 1 gram daily, warfarin. PHYSICAL EXAMINATION: GENERAL: This is a patient who is alert. She is very confused. She is not in any distress. She is not anemic. There is no thyromegaly or finger clubbing. VITAL SIGNS: Pulse is irregular at 84 beats per minute, blood pressure 148/83. NECK: JVP is normal. AJR is negative. There is no carotid bruit. HEART: Cardiac auscultation reveals no murmurs or rubs. There is a 2+ bilateral pedal edema and pretibial edema is also present, but it is very mild. RESPIRATORY: She is not tachypneic. Percussion note is not done. Auscultation revealed moderately diminished breath sounds with crackles and in the lower half of the lung warner. An echocardiogram done in September of this year was read by Dr. Harding and he mentions an LV ejection fraction of 45%-50%. Her chest x-ray today demonstrated "mild congestive heart failure." I reviewed the chest x-ray, it does show cephalization and mild pulmonary edema with modest-sized left pleural effusion. INR 1.6, glucose 112, BUN 12, creatinine 0.69, sodium of 3.9, hemoglobin 10.3 grams, WBC 14.8 with a left shift. IMPRESSION: 1. This patient has heart failure, this is most likely diastolic heart failure, acute on chronic, contributing factors are atrial fibrillation and impaired relaxation of the left ventricle. 2. Chronic atrial fibrillation with controlled ventricular rate. 3. Acute confusional state, may be from medication. RECOMMENDATIONS: I would recommend IV furosemide for a few days and then she should be on oral dose perhaps larger than the one she came in with. [place], [place] REPORT OF CONSULTATION NAME: ANTIONETTE ONEAL UNIT #: [id number] ROOM: 409 DOCTOR: SAVANNA MATSON MD BIRTHDATE: [birth year] She has chronic anemia as well. I thank you on behalf of Dr. Harding for this consult. SAVANNA MATSON MD CM:CONSTR:REPORT OF CONSULTATION 1731 01/05/17 0701 interface
--- NOTE | ~2017-01-01 | PROC NOTE ---
[place], [place] PROCEDURE NOTE NAME: ANTIONETTE ONEAL [facility] #: [id number] UNIT #: [id number] ROOM: 409 DOCTOR: MORTEZA CANALES BIRTHDATE: [birth year] DOS: 01/05/2017 MODIFIED BARIUM SWALLOW LOCATION: [facility], room 409, bed 1. RADIOLOGIST: Dr. Sam. PHYSICIAN: Dr. Melendrez. BACKGROUND INFORMATION: The patient an 89-year-old female who was seen for modified barium swallow. This test was ordered to rule out aspiration. The patient was seen for a bedside evaluation earlier this date and exhibited signs and symptoms of aspiration. The patient was admitted with UTI, metabolic encephalopathy and generalized weakness. Further medical history includes CVA, HTN, anxiety, atrial fibrillation and bronchitis. The patient currently receives a soft diet and thin liquids. For today's assessment, the patient was alert and confused, but able to follow commands. Respiratory status was within normal limits. Oral peripheral examination revealed presence of upper and lower dentures with adequate fit reported. Lingual, labial, and buccal skills were within normal limits. In terms of strength, range of motion, and coordination, the patient was able to volitionally cough and swallow. METHODS AND MATERIALS USED FOR THE EXAM: The patient was positioned in the lateral plane and the examination was viewed under fluoroscopy. The patient was presented with a variety of consistencies to assess swallowing skills including applesauce mixed with barium presented in half teaspoon amounts, barium-coated cookie and bread presented in bite size pieces and thin liquid barium taken by cup. The patient swallowed liquids in single sip size amounts. ORAL PHASE: The oral phase was essentially within normal limits. Labial seal was adequate. Bolus formation and transit were adequate. Mastication was slow only due to patient's confusion. At times she would get distracted and begin to talk prior to swallowing the food in her mouth. When cues were provided, she was able to be redirected and adequately chew and swallow. Tongue to palate contact was within normal limits. Tongue retraction and velar functioning were within normal limits. PHARYNGEAL PHASE: Unremarkable. ESOPHAGEAL PHASE: This phase of the swallow was not formally assessed during this examination. IMPRESSIONS AND RECOMMENDATIONS: Based upon assessment results, this 89-year-old patient displayed a safe swallow for all consistencies given including pureed, solid and thin liquids. No penetration or aspiration were displayed with any consistency and no residue was displayed. The patient was confused during the procedure and at times would stop chewing and begin to talk. Cues were helpful in redirecting her back to eating. Recommend the patient remain on present diet, recommend the patient be monitored at mealtime and [place], [place] PROCEDURE NOTE NAME: ANTIONETTE ONEAL UNIT #: [id number] ROOM: 409 DOCTOR: MORTEZA CANALES BIRTHDATE: [birth year] provide cues to swallow as needed. Short term followup therapy is recommended to ensure safe tolerance with diet. Results and recommendations were shared with the patient's nurse and strategies will be provided at bedside for education of staff. Nurse verbalized understanding of information provided. Thank you very much for this referral. Should you have any questions regarding this patient, please contact the speech pathologist at [phone]. MORTEZA CANALES CM:PROCNOTE:PROCEDURE NOTE [phone] MORTEZA CANALES
--- NOTE | ~2017-01-01 | DS ---
[place], [place] DISCHARGE SUMMARY NAME: ANTIONETTE ONEAL [facility] #: [id number] UNIT #: [id number] ROOM: 409 DOCTOR: CHARLIE CORRIGAN MD BIRTHDATE: [birth year] DOS: 01/06/2017 DIAGNOSES: 1. Urinary tract infection with Proteus mirabilis. 2. Metabolic encephalopathy. 3. Vascular dementia. 4. Adult failure to thrive. 5. Chronic atrial fibrillation with rapid ventricular response. 6. Benign hypertension. 7. Chronic lymphedema. 8. Generalized anxiety disorder. 9. Chronic back pain from spinal stenosis. 10. Left ventricular dysfunction. Ejection fraction 35%-40%. HOSPITAL COURSE: This patient is very well known to us. An 89-year-old who was brought in with complaints of confusion and change in mental status. Please refer to H and P for details. After admission, the patient was placed in a monitored floor, was found to have rapid ventricular response of AFib. A pro time was subtherapeutic. Discontinued the Coumadin and readjusted her medications including addition of Eliquis. Dr. Harding was consulted. Echocardiogram showed LV dysfunction. The patient continued to be quite confused and was thought to relate to her zolpidem and her pain medications which were both put on hold. PT/OT consultation was obtained. A CT of the head was done, which showed that she had vascular dementia. Condition was discussed with the patient's daughter and the patient is declining slowly. They wanted to take her home with hospice, but that was not feasible. So, the patient's family has requested that she be sent back to [facility]. She has received ceftriaxone for the last several days here. She will be placed on Bactrim DS twice daily upon discharge for about 5 more days for her continued infection. A digoxin level was therapeutic. DISCHARGE MEDICATIONS: Bactrim DS twice daily for 7 days, Eliquis 5 mg b.i.d., Rythmol 150 t.i.d., lovastatin 10 daily, multivitamin 1 tablet daily, Lasix 20 daily, losartan 100 daily, digoxin 0.125 daily, iron 325 daily, potassium 40 daily, Protonix 40 daily, ____ 30 mL twice daily, Marinol 2.5 b.i.d., Colace 100 b.i.d., metoprolol 50 t.i.d., Carafate 1 g q.i.d., Xanax 0.25 daily p.r.n. for anxiety, [place] 7.5 q.i.d. p.r.n. for discomfort, Zofran 4 mg q. 6 p.r.n. for nausea. Medications that were discontinued are nitrofurantoin, warfarin, zolpidem, and omeprazole. Please make sure that the patient has urine culture after the completion of antibiotics and please do a comprehensive metabolic panel and CBC to make sure the potassium levels are not getting too high. [place], [place] DISCHARGE SUMMARY NAME: ANTIONETTE ONEAL UNIT #: [id number] ROOM: 409 DOCTOR: CHARLIE CORRIGAN MD BIRTHDATE: [birth year] CHARLIE CORRIGAN MD CM:INDIA 4 7 CHARLIE CORRIGAN MD 01/06/17918 interface
--- NOTE | ~2017-01-01 | PR ---
[place], [place] PROGRESS NOTE NAME: ANTIONETTE ONEAL [facility] #: [id number] UNIT #: [id number] ROOM: 409 DOCTOR: CHARLIE CORRIGAN MD BIRTHDATE: [birth year] DOS: 01/05/2017 SUBJECTIVE: The patient is doing fine without any complaints this morning. She seems to be with it. PHYSICAL EXAMINATION: VITAL SIGNS: Graphic trend shows a pressure of 150/98, pulse of 68, respirations 20, temperature 98.2. LUNGS: Diminished breath sounds. HEART: Irregular. ABDOMEN: Obese. EXTREMITIES: No edema this morning. DIAGNOSTIC DATA: A cardiogram shows an LV function of about 35-40%. LABORATORY DATA: This morning, glucose 90, BUN 15, creatinine 0.69, sodium 136, potassium 3.7, chloride 99. WBC count is 15.4, hemoglobin 11.3, hematocrit 35.4. CT of the head shows small vessel disease. ASSESSMENT AND PLAN: 1. Metabolic encephalopathy from a urinary tract infection which maybe a little bit better than yesterday. 2. Proteus mirabilis in the urine. The patient is on ceftriaxone, which will be continued. 3. Cardiomyopathy with an ejection fraction 35-40%, on medications. 4. Chronic atrial fibrillation and long-term use of anticoagulants, on Eliquis now. 5. Failure to thrive, adult. I discussed with the patient's family. Daughter wants to take her home with hospice. They would like to know whether there is something feasible. A web content & social media manager consult will be written for hospice and . CHARLIE CORRIGAN MD CM:PNTRANS [id number] CHARLIE CORRIGAN MD 01/05/17 2218 interface
--- NOTE | ~2017-01-01 | WRIGHTHP ---
[place], [place] PATIENT HISTORY AND PHYSICAL EXAM NAME: ANTIONETTE ONEAL [facility] #: [id number] UNIT #: [id number] ROOM: 409 DOCTOR: CHARLIE CORRIGAN MD BIRTHDATE: [birth year] DOS: 01/02/2017 HISTORY OF PRESENT ILLNESS: The patient is 89 years old, very well known to us. She is a resident of [facility], was brought in with mild confusion. The patient got more confused during the night after and Ambien was given for sleep. The patient denies having any complaints this morning, but she is half asleep. She is not able to give me much history. She has had some nausea and also has had a cough, has some minimal abdominal discomfort. PAST MEDICAL HISTORY: Significant for, 1. Adult failure thrive, in a assisted right now. 2. Chronic atrial fibrillation, on long-term use of anticoagulants. 3. History of multiple UTIs. 4. Recent esophageal ulcer with GI bleed in September. 5. Chronic back pain from spinal stenosis, compression fracture of T10. MEDICATIONS: That she is on are Xanax 0.25 twice daily p.r.n., digoxin 0.125 daily, Colace 100 b.i.d., Marinol 2.5 b.i.d., omeprazole 40 daily, iron 325 daily, Lasix 20 daily, [place] 7.5 q.i.d. p.r.n., losartan 100 daily, lovastatin 10 daily, metoprolol 50 t.i.d., potassium 40 daily, Protonix 40 daily, Carafate 1 gram q.i.d., warfarin daily and zolpidem 5 at bedtime. SOCIAL HISTORY: Nonsmoker, does not use any alcohol. PHYSICAL EXAMINATION: GENERAL: She is awake and alert, did recognized me, but she fell asleep very fast. VITAL SIGNS: Graphic trend shows a pressure 142/70, pulse of 86, respirations 20, afebrile. HEAD AND NECK: Examination within normal limits. LUNGS: Diminished breath sounds, a few scattered rhonchi heard. HEART: Regular. ABDOMEN: Obese, soft, nontender. EXTREMITIES: Trace edema bilaterally, which is actually much improved for this patient. ASSESSMENT AND PLAN: 1. The patient comes in with confusion, has metabolic encephalopathy from possibly UTI. The patient is placed on slow IV hydration and is ordered IV antibiotics. Urine cultures have been sent. 2. Chronic atrial fibrillation on long-term use of anticoagulants. Protimes are being followed closely. 3. Chronic back pain, already on pain medications. 4. Adult failure to thrive, should go back once we have identification of pathogen for the urinary tract infection. 5. Complaints of cough. Chest x-ray shows a slight atelectasis versus pneumonia, possibly gram negative. The patient is already on antibiotics. Cough medications will be ordered. [place], [place] PATIENT HISTORY AND PHYSICAL EXAM NAME: ANTIONETTE ONEAL UNIT #: [id number] ROOM: 409 DOCTOR: CHARLIE CORRIGAN MD BIRTHDATE: [birth year] CHARLIE CORRIGAN MD CM:HISPHYS:PATIENT HISTORY AND PHYSICAL EXAMINATION [phone] CHARLIE CORRIGAN MD 01/02/17 09 interface
--- NOTE | ~2017-01-01 | PR ---
[place], [place] PROGRESS NOTE NAME: ANTIONETTE ONEAL [facility] #: [id number] UNIT #: [id number] ROOM: 409 DOCTOR: CHARLIE CORRIGAN MD BIRTHDATE: [birth year] DOS: 01/06/2017 SUBJECTIVE: The patient is doing fine without any complaints. Modified barium swallow was done, which did not show any evidence of aspiration. OBJECTIVE: VITAL SIGNS: Blood pressure is 164/79, pulse of 67, respirations 18, temperature 98.2. LUNGS: Diminished breath sounds, clear. HEART: Regular. ABDOMEN: Obese, soft, nontender. EXTREMITIES: Without any edema. LABORATORY DATA: Echocardiogram shows cardiomyopathy, ejection fraction is 35% to 40%. ASSESSMENT AND PLAN: 1. Metabolic encephalopathy from urinary tract infection. 2. Urinary tract infection with Proteus mirabilis, on IV antibiotics, which will be switched to p.o. on discharge. 3. Benign hypertension, controlled. 4. Chronic atrial fibrillation, switched to Eliquis instead of the Coumadin. CHARLIE CORRIGAN MD CM:PNTRANS [phone] CHARLIE CORRIGAN MD 01/06/17 1138 interface
--- NOTE | ~2017-01-01 | PR ---
[place], [place] PROGRESS NOTE [id number] #: [id number] ROOM: 409 DOCTOR: CHARLIE CORRIGAN MD BIRTHDATE: [birth year] DOS: 01/04/2017 SUBJECTIVE: The patient is about the same, does not have any new changes. She is still confused, but is able to reorient herself. OBJECTIVE: VITAL SIGNS: Pressure is 141/60, pulse of 76, respirations 20, temperature 98.0. LUNGS: Diminished breath sounds. HEART: Irregular. ABDOMEN: Obese. EXTREMITIES: Trace edema bilaterally. Again, skin tear on the right hernandez, pretibial area. LABORATORY DATA: Blood culture shows no bacterial growth. Urine culture shows heavy Proteus mirabilis. ASSESSMENT AND PLAN: 1. Urinary tract infection, on IV antibiotics. 2. Metabolic encephalopathy, possibly vascular dementia. We will go ahead and arrange for a CT of the head this morning. 3. Chronic atrial fibrillation. Protime is still subtherapeutic. We will readjust medications. 4. Adult failure to thrive, to go back to [facility] soon. CHARLIE CORRIGAN MD CM:PNTRANS [phone] CHARLIE CORRIGAN MD 01/05/17 0031 interface
--- NOTE | ~2017-01-01 | PR ---
[place], [place] PROGRESS NOTE [id number] #: [id number] ROOM: 409 DOCTOR: CHARLIE CORRIGAN MD BIRTHDATE: [birth year] DOS: SUBJECTIVE: The patient is confused. This morning she is pleasant. OBJECTIVE: VITAL SIGNS: Blood pressure is 166/86, pulse of 60, respirations 18, temperature 98.3. LUNGS: Diminished breath sounds. HEART: Irregular. Heart rate in the 50s right now. ABDOMEN: Obese, soft, nontender. EXTREMITIES: Without any edema. LABORATORY DATA: Urine culture shows Proteus mirabilis, which is resistant to Floxin and Macrobid, sensitive to Bactrim and ceftriaxone. White blood cell count is 14.8, hemoglobin 10.3, hematocrit 32.1, platelets 311. BMP: Glucose 112, BUN 12, creatinine 0.69, sodium 133, potassium 3.9. Protime 1.6 INR. ASSESSMENT AND PLAN: 1. Metabolic encephalopathy, this is persistent and consider adding a low dose Risperdal, complicated by the fact that she is already on pain medicines which could be making the issue. 2. Urinary tract infection with Proteus on antibiotics can switch to p.o. tomorrow and discharge her back to the longterm. 3. Chronic atrial fibrillation with rapid ventricular response. Heart rate is controlled and is on the low side, decrease medication dose. CHARLIE CORRIGAN MD CM:PNTRANS [id number] CHARLIE CORRIGAN MD 01/03/171814 interface
[~2017-01-01 13:57] MED LIST changes: +Carafate1 GM PO; +DOK COLACE100 MG PO; +LOSARTAN POTAS100 M1 PO; +METOPROLOL TART50 M1 PO; +XOPENEX0.63 MG NEB
[2017-01-01 14:01] VITALS: BP 134/77
[2017-01-01] MEDS ORDERED: ZOLPIDEM TART5 MG PO (14:10)
[2017-01-01] MEDS ORDERED: DIGOXIN0.125 MG PO (14:11)
[2017-01-01] MEDS ORDERED: WARFARIN SODIUM3 MG PO (14:11)
[2017-01-01] MEDS ORDERED: WARFARIN SOD2 MG PO (14:11)
[2017-01-01] MEDS ORDERED: FEROSUL325 MG PO (14:12)
[2017-01-01] MEDS ORDERED: POTASSIUM CHLO10 ME4 PO (14:15)
[2017-01-01] MEDS ORDERED: PROTONIX40 MG PO (14:16)
[2017-01-01] MEDS ORDERED: MACROBID100 M1 PO (14:17)
[2017-01-01] MEDS ORDERED: PROSOURCE PLUS30 ML PO (14:18)
[2017-01-01 14:36] LABS: BASO # 0.1 10*3/uL (0.0-0.1); BASO % 0.5 % (0.0-1.0); EOS # 0.1 10*3/uL (0.0-0.4); EOS % 0.8 % (1.0-4.0); HEMATOCRIT 36.1 % (37.0-47.0); HEMOGLOBIN 11.9 g/dl (12.0-16.0); IG # 0.1 10*3/uL (0.0-0.1); LYMPH # 2.4 10*3/uL (1.3-4.4); LYMPH % 19.8 % (27.0-41.0); MEAN CELL VOLUME 90.3 fl (81.0-99.0); MEAN CORPUSCULAR HGB 29.8 pg (27.0-31.0); MEAN PLATELET VOLUME 9.3 fl (9.6-12.3); MONO # 0.9 10*3/uL (0.1-1.0); NEUT # 8.7 10*3/uL (2.3-7.9); NEUT % 71.4 % (47.0-73.0); PLATELET COUNT AUTOMATED 313 10*3/uL (130-400); WHITE BLOOD COUNT 12.2 10*3/uL (4.8-10.8)
[2017-01-01 14:45] LABS: INTERNATIONAL NORM RATIO 1.6 (2.0-3.5); PROTHROMBIN TIME 17.2 SECONDS (9.0-12.4)
[2017-01-01 14:53] LABS: ALBUMIN 2.6 gm/dl (3.1-4.5); ALKALINE PHOSPHATASE 98 U/L (45-117); BILIRUBIN, TOTAL 0.3 mg/dl (0.2-1.0); BUN 17 mg/dl (7-24); CARBON DIOXIDE 25 mmol/L (21-32); CHLORIDE 101 mmol/L (98-107); CKMB 0.7 ng/ml (0.5-3.6); CPK 23 U/L (26-192); EST GLOM FILT AFRICAN AMERICAN > 60 ml/min; GLUCOSE 114 mg/dL (65-99); MAGNESIUM 1.9 mg/dL (1.5-2.1); POTASSIUM 4.2 mmol/L (3.5-5.1); SGOT/AST 15 IU/L (3-35); SGPT/ALT 14 U/L (12-78); SODIUM 137 mmol/L (136-145); TOTAL PROTEIN 6.4 gm/dL (6.4-8.2)
[2017-01-01 14:54] LABS: BILIRUBIN NEGATIVE (NEGATIVE); BLOOD 3+ (NEGATIVE); CLARITY CLOUDY (CLEAR); COLOR YELLOW (YELLOW); GLUCOSE NEGATIVE (NEGATIVE); KETONE NEGATIVE (NEGATIVE); LEUKO ESTERASE 3+ (NEGATIVE); NITRITE NEGATIVE (NEGATIVE); PROTEIN TRACE (NEGATIVE)
[2017-01-01 14:57] LABS: TROPONIN I < 0.015 ng/ml (<0.045)
[2017-01-01 14:59] LABS: BACTERIA 2+; WBC TNTC wbc/hpf (0-5)
[2017-01-01 15:00] LABS: MUCOUS 1+; URINE REFLEX COMMENT YES (NO)
[2017-01-01 16:16] VITALS: BP 104/60
[2017-01-01 16:55] VITALS: BP 156/80
[2017-01-01] MEDS ORDERED: MARINOL2.5 M1 PO (17:13)
[2017-01-01] MEDS ORDERED: COLACE100 MG PO (17:14)
[2017-01-01] MEDS ORDERED: METOPROLOL TART50 M1 PO (17:15)
[2017-01-01] MEDS ORDERED: CARAFATE1 G1 PO (17:16)
[2017-01-01] MEDS ORDERED: ZOFRAN4 MG PO (17:17)
[2017-01-01] MEDS ORDERED: XANAX0.25 MG PO (17:17)
[2017-01-01] MEDS ORDERED: NORCO 7.5-3251 EACH PO (17:19)
[2017-01-01 20:00] VITALS: BP 152/78
[2017-01-02] VITALS: BP 153/68
[2017-01-02 09:40] LABS: INTERNATIONAL NORM RATIO 1.5 (2.0-3.5); PROTHROMBIN TIME 16.6 SECONDS (9.0-12.4)
[2017-01-02 16:00] VITALS: BP 156/86
[2017-01-02 20:00] VITALS: BP 158/92
[2017-01-03] VITALS: BP 153/78
[2017-01-03 07:09] LABS: BASO % 0.3 % (0.0-1.0); EOS % 0.1 % (1.0-4.0); HEMATOCRIT 32.1 % (37.0-47.0); HEMOGLOBIN 10.3 g/dl (12.0-16.0); IG # 0.1 10*3/uL (0.0-0.1); LYMPH # 2.5 10*3/uL (1.3-4.4); LYMPH % 16.9 % (27.0-41.0); MEAN CELL VOLUME 91.5 fl (81.0-99.0); MEAN CORPUSCULAR HGB 29.3 pg (27.0-31.0); MEAN CORPUSCULAR HGB CONC 32.1 g/dl (33.0-37.0); MEAN PLATELET VOLUME 9.4 fl (9.6-12.3); MONO # 1.1 10*3/uL (0.1-1.0); MONO % 7.2 % (3.0-9.0); NEUT # 11.1 10*3/uL (2.3-7.9); NEUT % 74.9 % (47.0-73.0); PLATELET COUNT AUTOMATED 311 10*3/uL (130-400); RED BLOOD COUNT 3.51 10*6/uL (4.10-5.10); RED CELL DISTRI WIDTH 14.1 % (0-14.5); WHITE BLOOD COUNT 14.8 10*3/uL (4.8-10.8)
[2017-01-03 07:35] LABS: BUN 12 mg/dl (7-24); CARBON DIOXIDE 26 mmol/L (21-32); CHLORIDE 99 mmol/L (98-107); GLUCOSE 112 mg/dL (65-99); POTASSIUM 3.9 mmol/L (3.5-5.1); SODIUM 133 mmol/L (136-145)
[2017-01-03 07:36] LABS: EST GLOM FILT AFRICAN AMERICAN > 60 ml/min
[2017-01-03 07:48] LABS: INTERNATIONAL NORM RATIO 1.6 (2.0-3.5)
[2017-01-03 08:00] VITALS: BP 166/86
[2017-01-03 16:00] VITALS: BP 122/48
[2017-01-04] VITALS: BP 151/60
[2017-01-04 08:00] VITALS: BP 158/82
[2017-01-04 12:00] VITALS: BP 134/76
[2017-01-04 16:00] VITALS: BP 148/83
[2017-01-04 20:00] VITALS: BP 180/90
[2017-01-05] VITALS: BP 165/102
[2017-01-05 06:14] LABS: BASO # 0.1 10*3/uL (0.0-0.1); BASO % 0.4 % (0.0-1.0); EOS # 0.1 10*3/uL (0.0-0.4); EOS % 0.4 % (1.0-4.0); HEMATOCRIT 35.4 % (37.0-47.0); HEMOGLOBIN 11.3 g/dl (12.0-16.0); IG # 0.1 10*3/uL (0.0-0.1); LYMPH # 2.1 10*3/uL (1.3-4.4); LYMPH % 13.6 % (27.0-41.0); MEAN CORPUSCULAR HGB CONC 31.9 g/dl (33.0-37.0); MEAN PLATELET VOLUME 9.4 fl (9.6-12.3); MONO % 6.3 % (3.0-9.0); NEUT # 12.1 10*3/uL (2.3-7.9); NEUT % 78.8 % (47.0-73.0); PLATELET COUNT AUTOMATED 330 10*3/uL (130-400); RED BLOOD COUNT 3.89 10*6/uL (4.10-5.10); RED CELL DISTRI WIDTH 13.9 % (0-14.5); WHITE BLOOD COUNT 15.4 10*3/uL (4.8-10.8)
[2017-01-05 06:39] LABS: BUN 15 mg/dl (7-24); CARBON DIOXIDE 29 mmol/L (21-32); CHLORIDE 99 mmol/L (98-107); EST GLOM FILT AFRICAN AMERICAN > 60 ml/min; GLUCOSE 90 mg/dL (65-99); POTASSIUM 3.7 mmol/L (3.5-5.1); SODIUM 136 mmol/L (136-145)
[2017-01-05 07:59] VITALS: BP 150/98
[2017-01-05 12:00] VITALS: BP 170/89
[2017-01-05 16:00] VITALS: BP 155/87
[2017-01-05 20:00] VITALS: BP 160/70
[2017-01-05 20:20] VITALS: BP 160/72
[2017-01-06] VITALS: BP 164/79
[2017-01-06 08:00] VITALS: BP 162/82
[2017-01-06] MEDS ORDERED: ELIQUIS5 M1 PO (09:02)
[2017-01-06] MEDS ORDERED: PROPAFENONE HC150 MG PO (09:02)
[2017-01-06] MEDS ORDERED: CEFTRIAXONE1 GM IJ (11:26)
== END 2017-01-06 12:15 | disposition other institution (70) | DRG 291 ==
LOC: ED 13:57 → 4E 15:30 → EDHOLD 15:30 → 4E 15:48
PROVIDERS: Emergency Medicine; Internal Medicine
PROC: BD11YZZ Fluoroscopy of Esophagus using Other Contrast (ICD-10-PCS; principal; 2017-01-05)
DX: I50.33 Acute on chronic diastolic (congestive) heart failure (principal); G93.41 Metabolic encephalopathy; N39.0 Urinary tract infection, site not specified; F01.50 Vascular dementia, unspecified severity, without behavioral disturbance, psychotic disturbance, mood disturbance, and anxiety; J98.11 Atelectasis; I11.0 Hypertensive heart disease with heart failure; I48.2 Chronic atrial fibrillation; M54.9 Dorsalgia, unspecified; G89.29 Other chronic pain; F41.9 Anxiety disorder, unspecified; M48.00 Spinal stenosis, site unspecified; R62.7 Adult failure to thrive; B96.4 Proteus (mirabilis) (morganii) as the cause of diseases classified elsewhere; M81.0 Age-related osteoporosis without current pathological fracture; Z79.899 Other long term (current) drug therapy; Z79.01 Long term (current) use of anticoagulants; Z86.73 Personal history of transient ischemic attack (TIA), and cerebral infarction without residual deficits

== ENCOUNTER 2017-02-23 13:53 | Inpatient (IN) | payer MEDICARE ==
[~2017-02-23] VITALS: Ht 162.5 cm; Wt 69.0 kg
--- NOTE | ~2017-02-23 | PR ---
[place], [place] PROGRESS NOTE [id number] #: [id number] ROOM: 421 DOCTOR: CHARLIE CORRIGAN MD BIRTHDATE: [birth year] DOS: 03/01/2017 SUBJECTIVE: The patient is sitting up in her bed, trying to do some toileting this morning. She is feeling fairly good, does not have any complaints. OBJECTIVE: VITAL SIGNS: Blood pressure 140/72, pulse of 78, respirations 12, temperature 98.0. LUNGS: Clear. HEART: Irregular, uncontrolled. ABDOMEN: Obese. EXTREMITIES: Without any edema. ASSESSMENT AND PLAN: 1. An MRSA of the urine. The patient has received 7 days of antibiotics. She does not have a PICC line. Plan is to discharge her to custodial today, but we will discontinue the vancomycin and place her on something p.o. 2. Failure to thrive with underlying dementia. The family is requesting placement, hoping the insurance will approve it, and she could go there today. 3. Chronic atrial fibrillation, on long-term use of anticoagulants, stable. CHARLIE CORRIGAN MD CM:PNTRANS [phone] CHARLIE CORRIGAN MD 03/02/17 0103 interface
--- NOTE | ~2017-02-23 | PR ---
[place], [place] PROGRESS NOTE NAME[id number] #: [id number] ROOM: 421 DOCTOR: CHARLIE CORRIGAN MD BIRTHDATE: [birth year] DOS: SUBJECTIVE: The patient is resting comfortably, does not have any new complaints. PHYSICAL EXAMINATION: GENERAL: She is awake and alert, oriented to place and person. VITAL SIGNS: Blood pressure is 142/70, pulse of 78 and irregular, respirations 14 and afebrile. LUNGS: Clear. HEART: Irregular. ABDOMEN: Obese. EXTREMITIES: Without any edema, left lower leg. The wound remains pretty much the same as when she was admitted. ASSESSMENT AND PLAN: 1. Methicillin-resistant Staphylococcus aureus of the urine on IV antibiotics. 2. Adult failure to thrive. Discussed with the patient's daughter, she requested the patient be placed for long-term care at [facility]. Discussed with case management this morning. Social service consultation has been written. 3. Chronic atrial fibrillation, on long-term use of anticoagulants, controlled heart rate. CHARLIE CORRIGAN MD CM:PNTRANS [phone] CHARLIE CORRIGAN MD 02/26/172308 interface
--- NOTE | ~2017-02-23 | PR ---
[place], [place] PROGRESS NOTE NAME: ANTIONETTE ONEAL [facility] #: [id number] UNIT #: [id number] ROOM: 421 DOCTOR: CHARLIE CORRIGAN MD BIRTHDATE: [birth year] DOS: SUBJECTIVE: The patient is doing fine without any complaints this morning. OBJECTIVE: VITAL SIGNS: Graphic trend shows pressure of 156/70, pulse is 73, respirations 20, temperature 97.5. LUNGS: Clear. HEART: Irregular heart rate, controlled. ABDOMEN: Obese, soft. EXTREMITIES: Without any edema. ASSESSMENT AND PLAN: 1. MRSA of the urine, on IV vancomycin. 2. Adult failure to thrive. PT/OT has been consulted. 3. Vascular dementia with delirium and encephalopathy. The patient is unable to stay home, go home. Family members are looking at placement. Social Service and Case Management working on that. CHARLIE CORRIGAN MD CM:PNTRANS [id number] CHARLIE CORRIGAN MD 02/27/17 1025 interface
--- NOTE | ~2017-02-23 | PR ---
[place], [place] PROGRESS NOTE NAME: ANTIONETTE ONEAL [facility] #: [id number] UNIT #: [id number] ROOM: 421 DOCTOR: CHARLIE CORRIGAN MD BIRTHDATE: [birth year] DOS: SUBJECTIVE: The patient is feeling fairly good but pleasantly confused. She refused the PICC line yesterday. OBJECTIVE: VITAL SIGNS: Blood pressure is 156/87, pulse of 66, respirations 16, temperature 98.8. LUNGS: Clear. HEART: Irregular. Controlled heart rate. ABDOMEN: Obese. EXTREMITIES: Without any edema. LABORATORY DATA: Sodium is 138, potassium 2.8, chloride 102, bicarbonate 28, BUN 7, creatinine 0.41, glucose 101, and calcium 7.1. ASSESSMENT AND PLAN: Methicillin-resistant Staphylococcus aureus of the urine on IV vancomycin. The patient has refused a PICC line placement so unfortunately, she cannot go home with IV antibiotics, so she has to stay in the hospital. There are no other antibiotics, which would work for this patient except for Bactrim, the patient is allergic to as well as the doxycycline, the patient is allergic to. The only medicine left is gentamicin, vancomycin or Zyvox. The Zyvox is too expensive for them to afford, so most likely give her 2 more doses of vancomycin and probably discharge on Macrodantin. Two hypokalemia supplementation was given yesterday, but the potassium levels are further down. We will discontinue IV fluids and p.o. and IV supplementation was ordered. CHARLIE CORRIGAN MD CM:PNTRANS [id number] CHARLIE CORRIGAN MD 02/25/171937 interface
--- NOTE | ~2017-02-23 | WRIGHTHP ---
[place], [place] PATIENT HISTORY AND PHYSICAL EXAM NAME: ANTIONETTE ONEAL [facility] #: [id number] UNIT #: [id number] ROOM: 421 DOCTOR: CHARLIE CORRIGAN MD BIRTHDATE: [birth year] DOS: 02/23/2017 HISTORY OF PRESENT ILLNESS: This patient is very well known to us, 89 years old who comes in with complaints of UTI. The patient had a urine culture done as an outpatient for encephalopathy complaints and was found to have MRSA of the urine. The patient denies having any chest pains, palpitations, does not have any fever or chills. Does not have any nausea, any emesis this morning, but she is much more lucid. She is able to answer questions appropriately. PAST MEDICAL HISTORY: Significant for: 1. 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 2. Generalized anxiety disorder. 3. Chronic back pain from spinal stenosis. 4. Hypertension. 5. Adult failure to thrive. 6. Vascular dementia. 7. Encephalopathy, metabolic. 8. History of multiple UTIs. MEDICATIONS: She is on are Xanax 0.25 twice daily p.r.n., Eliquis 5 mg b.i.d., digoxin 0.125 daily, Colace 100 b.i.d., Marinol 2.5 b.i.d., iron 325 daily, Lasix 20 daily, Dix 7.5 q.i.d., losartan 100 daily, lovastatin 10 daily, metoprolol 50 t.i.d., multivitamin one tablet daily, Protonix 40 daily, potassium 40 daily, Rythmol 150 b.i.d., Carafate 1 gram 4 times a day. SOCIAL HISTORY: Nonsmoker, does not use any alcohol. PHYSICAL EXAMINATION: GENERAL: The patient is awake and alert and oriented. VITAL SIGNS: Blood pressure is 154/61, pulse of 76, respirations 20, temperature 98.1. LUNGS: Clear. HEART: Regular. ABDOMEN: Obese, soft, nontender. EXTREMITIES: Without any edema. She has a laceration from a skin tear on the left anterior tibial area, which is healing nicely. There is no evidence of any ongoing infection. ASSESSMENT AND PLAN: 1. Urinary tract infection with methicillin-resistant Staphylococcus aureus. The patient is only sensitive to gentamicin and vancomycin IV. In the p.o. medication sensitive to Bactrim, but the patient is allergic to it, so I decided to admit the patient. We will see whether she can receive home IV antibiotics, whether the patient can have it cleared by insurance company. 2. Benign hypertension, controlled. 3. Hypokalemia. Supplementation was given and routine labs to be ordered for tomorrow. 4. Chronic atrial fibrillation on long-term use of anticoagulants. No changes made. [place], [place] PATIENT HISTORY AND PHYSICAL EXAM [facility]: [facility] #: [id number] UNIT #: [id number] ROOM: [facility] DOCTOR: CHARLIE CORRIGNA MD BIRTHDATE: [birth year] CHARLIE CORRIGAN MD CM:HISPHYS:PATIENT HISTORY AND PHYSICAL EXAMINATION 2 7 CHARLIE CORRIGAN MD 02/24/17826 interface
--- NOTE | ~2017-02-23 | DS ---
[place], [place] DISCHARGE SUMMARY NAME: ANTIONETTE ONEAL [facility] #: [id number] UNIT #: [id number] ROOM: 421 DOCTOR: CHARLIE CORRIGAN MD BIRTHDATE: [birth year] DOS: 03/01/2017 The patient is 89 years old. The patient was admitted to the hospital on 02/23/2017. DIAGNOSES: 1. Methicillin-resistant Staphylococcus aureus of the urine. 2. Cardiomyopathy, 35-40% ejection fraction. 3. Chronic atrial fibrillation with long-term use of anticoagulants. 4. Chronic back pain with spinal stenosis. 5. Benign hypertension. 6. Failure to thrive, adult. 7. Vascular dementia. 8. Metabolic encephalopathy. 9. Generalized anxiety disorder. 10. Poorly healing wound of left anticubital area from a recent injury. DISCHARGE MEDICATIONS: Will be nitrofurantoin 100 mg q. 6 hours for 7 days, lovastatin 10 daily, multivitamin 1 tablet daily, Lasix 20 daily, losartan 100 daily, digoxin 0.125 daily, iron 325 daily, potassium 40 daily, Protonix 40 daily, ProSource liquid 30 twice a day, dronabinol 2.5 b.i.d., Colace 100 b.i.d., metoprolol 50 t.i.d., Carafate 1 gram q.i.d., Xanax 0.25 twice a day p.r.n. for anxiety, Zofran 4 mg q. 6 p.r.n. for nausea, [place] 7.5 q.i.d. p.r.n. for pain, Eliquis 5 mg twice daily, propafenone 150 mg twice daily. HOSPITAL COURSE: This patient is very well known to us, comes in with positive urine culture for MRSA. The patient is allergic to most of the medicines that are on the culture result. The patient was admitted for IV vancomycin. She refused PICC line placement. She has received antibiotics for the last 6 days. The patient is not having any new complaints. We were planning to discharge her to home, but the family is unable to take care of her. They requested long-term care placement. The patient is going to [facility]. The patient is overall stable. She has chronic AFib. The heart rate is controlled. She is on Eliquis. She does not have any evidence of CHF. The wound on her left leg is being treated with TheraHoney and dressings. The patient does require PT, OT, but does not participate in DTs here, she is unable to walk mostly she is wheelchair dependent at home. The patient is stable and is to be discharged home after the completion of Macrobid. Please do a basic metabolic panel, CBC and a urine culture. [place], [place] DISCHARGE SUMMARY NAME: ANTIONETTE ONEAL [facility] #: [id number] UNIT #: [id number] ROOM: 421 DOCTOR: CHARLIE CORRIGAN MD BIRTHDATE: [birth year] CHARLIE CORRIGAN MD CM:DISCHARG 1 [phone] CHARLIE CORRIGAN MD 03/01/17 170 interface
--- NOTE | ~2017-02-23 | PR ---
[place], [place] PROGRESS NOTE NAME: ANTIONETTE ONEAL [facility] #: [id number] UNIT #: [id number] ROOM: 421 DOCTOR: CHARLIE CORRIGAN MD BIRTHDATE: [birth year] DOS: SUBJECTIVE: The patient is doing fine without any complaints this morning. She did sit all day long in a chair as per the nursing staff, even though she has refused the PT for the last several days. OBJECTIVE: VITAL SIGNS: Blood pressure is 157/70, pulse of 73, respirations 20, temperature 98.4. LUNGS: Clear. HEART: Irregular. ABDOMEN: Obese, soft, nontender. EXTREMITIES: Some minimal lymphedema noticed in the left lower leg. The wound on the left anterior tibial area appears much improved. LABORATORY DATA: WBC count is normal at 10.1, hemoglobin 10.7, hematocrit 32.5, platelets 250. I do not have a BMP this morning yet. ASSESSMENT AND PLAN: 1. Hypokalemia. Supplementation was given. Awaiting BMP. 2. Methicillin-resistant Staphylococcus aureus of the urine, on vancomycin IV, should be finishing pretty soon. 3. Adult failure to thrive with frailty falls with worsening encephalopathy from underlying dementia. Family has requested placement. Practice Director are still working on it. CHARLIE CORRIGAN MD CM:PNTRANS [id number] CHARLIE CORRIGAN MD 02/28/17 0806 interface
[~2017-02-23 13:53] MED LIST changes: +CARAFATE1 G1 PO; +CEFTRIAXONE1 GM IJ; +COLACE100 MG PO; +DIGOXIN0.125 MG PO; +ELIQUIS5 M1 PO; +FEROSUL325 MG PO; +MACROBID100 M1 PO; +MARINOL2.5 M1 PO; +POTASSIUM CHLO10 ME4 PO; +PROPAFENONE HC150 MG PO; +PROSOURCE PLUS30 ML PO; +PROTONIX40 MG PO; +WARFARIN SOD2 MG PO; +WARFARIN SODIUM3 MG PO; +XANAX0.25 MG PO; +ZOFRAN4 MG PO; +ZOLPIDEM TART5 MG PO
[2017-02-23 14:15] VITALS: BP 144/56
[2017-02-23 14:30] VITALS: BP 144/56
[2017-02-23 16:00] VITALS: BP 139/57
[2017-02-23] MEDS ORDERED: PROPAFENONE HC150 MG PO (19:43)
[2017-02-23 19:55] LABS: EST GLOM FILT AFRICAN AMERICAN > 60 ml/min
[2017-02-23 20:00] VITALS: BP 150/65
[2017-02-24] VITALS: BP 154/61
[2017-02-24 06:12] LABS: BASO # 0.1 10*3/uL (0.0-0.1); BASO % 0.6 % (0.0-1.0); EOS # 0.2 10*3/uL (0.0-0.4); EOS % 1.6 % (1.0-4.0); HEMATOCRIT 30.6 % (37.0-47.0); IG # 0.1 10*3/uL (0.0-0.1); LYMPH # 2.3 10*3/uL (1.3-4.4); MEAN CELL VOLUME 90.3 fl (81.0-99.0); MEAN CORPUSCULAR HGB 29.5 pg (27.0-31.0); MEAN CORPUSCULAR HGB CONC 32.7 g/dl (33.0-37.0); MEAN PLATELET VOLUME 9.1 fl (9.6-12.3); MONO # 0.7 10*3/uL (0.1-1.0); NEUT # 7.2 10*3/uL (2.3-7.9); NEUT % 68.3 % (47.0-73.0); PLATELET COUNT AUTOMATED 249 10*3/uL (130-400); RED BLOOD COUNT 3.39 10*6/uL (4.10-5.10); RED CELL DISTRI WIDTH 13.6 % (0-14.5); WHITE BLOOD COUNT 10.6 10*3/uL (4.8-10.8)
[2017-02-24 06:34] LABS: BUN 11 mg/dl (7-24); CARBON DIOXIDE 32 mmol/L (21-32); CHLORIDE 102 mmol/L (98-107); EST GLOM FILT AFRICAN AMERICAN > 60 ml/min; GLUCOSE 87 mg/dL (65-99); SODIUM 139 mmol/L (136-145)
[2017-02-24 08:00] VITALS: BP 124/60
[2017-02-24 12:00] VITALS: BP 153/50
[2017-02-24 16:00] VITALS: BP 127/53
[2017-02-24 20:00] VITALS: BP 131/63
[2017-02-25] VITALS: BP 156/87
[2017-02-25 07:16] LABS: BUN 7 mg/dl (7-24); CARBON DIOXIDE 28 mmol/L (21-32); CHLORIDE 102 mmol/L (98-107); EST GLOM FILT AFRICAN AMERICAN > 60 ml/min; GLUCOSE 101 mg/dL (65-99); POTASSIUM 2.8 mmol/L (3.5-5.1); SODIUM 138 mmol/L (136-145)
[2017-02-25 08:00] VITALS: BP 152/52
[2017-02-25 12:00] VITALS: BP 140/74
[2017-02-25 16:56] VITALS: BP 152/78
[2017-02-25 20:00] VITALS: BP 153/80
[2017-02-26] VITALS: BP 159/56
[2017-02-26 07:15] LABS: CHLORIDE 103 mmol/L (98-107)
[2017-02-26 07:31] LABS: BUN 7 mg/dl (7-24); CARBON DIOXIDE 26 mmol/L (21-32); EST GLOM FILT AFRICAN AMERICAN > 60 ml/min; GLUCOSE 113 mg/dL (65-99)
[2017-02-26 07:51] LABS: SODIUM 137 mmol/L (136-145)
[2017-02-26 07:59] LABS: POTASSIUM 3.8 mmol/L (3.5-5.1)
[2017-02-26 08:00] VITALS: BP 147/46
[2017-02-26 12:00] VITALS: BP 131/92
[2017-02-26 16:00] VITALS: BP 159/90
[2017-02-26 20:00] VITALS: BP 151/74
[2017-02-27] VITALS: BP 166/70
[2017-02-27 08:00] VITALS: BP 138/92
[2017-02-27 16:00] VITALS: BP 160/80
[2017-02-28] VITALS: BP 157/70
[2017-02-28 06:23] LABS: BASO # 0.1 10*3/uL (0.0-0.1); BASO % 0.5 % (0.0-1.0); EOS # 0.1 10*3/uL (0.0-0.4); EOS % 1.1 % (1.0-4.0); HEMATOCRIT 32.5 % (37.0-47.0); HEMOGLOBIN 10.7 g/dl (12.0-16.0); LYMPH # 1.8 10*3/uL (1.3-4.4); LYMPH % 17.8 % (27.0-41.0); MEAN CELL VOLUME 90.8 fl (81.0-99.0); MEAN CORPUSCULAR HGB 29.9 pg (27.0-31.0); MEAN CORPUSCULAR HGB CONC 32.9 g/dl (33.0-37.0); MEAN PLATELET VOLUME 9.3 fl (9.6-12.3); MONO % 9.7 % (3.0-9.0); NEUT # 7.1 10*3/uL (2.3-7.9); NEUT % 70.5 % (47.0-73.0); PLATELET COUNT AUTOMATED 250 10*3/uL (130-400); RED BLOOD COUNT 3.58 10*6/uL (4.10-5.10); WHITE BLOOD COUNT 10.1 10*3/uL (4.8-10.8)
[2017-02-28 06:55] LABS: BUN 6 mg/dl (7-24); CARBON DIOXIDE 31 mmol/L (21-32); CHLORIDE 98 mmol/L (98-107); EST GLOM FILT AFRICAN AMERICAN > 60 ml/min; GLUCOSE 86 mg/dL (65-99); POTASSIUM 3.8 mmol/L (3.5-5.1); SODIUM 136 mmol/L (136-145)
[2017-02-28 08:00] VITALS: BP 102/54
[2017-02-28 16:00] VITALS: BP 160/98
[2017-02-28 20:00] VITALS: BP 156/54
[2017-03-01] VITALS: BP 150/109
[2017-03-01 00:20] VITALS: BP 140/72
[2017-03-01] MEDS ORDERED: MACRODANTIN100 M1 PO (07:58)
[2017-03-01 08:00] VITALS: BP 140/63
== END 2017-03-01 13:19 | disposition other institution (70) | DRG 689 ==
LOC: 4E 13:53
PROVIDERS: Internal Medicine
DX: N39.0 Urinary tract infection, site not specified (principal); G93.41 Metabolic encephalopathy; I42.9 Cardiomyopathy, unspecified; I48.2 Chronic atrial fibrillation; F01.50 Vascular dementia, unspecified severity, without behavioral disturbance, psychotic disturbance, mood disturbance, and anxiety; E87.6 Hypokalemia; B95.62 Methicillin resistant Staphylococcus aureus infection as the cause of diseases classified elsewhere; I10 Essential (primary) hypertension; M48.00 Spinal stenosis, site unspecified; G89.29 Other chronic pain; M54.9 Dorsalgia, unspecified; Z66 Do not resuscitate; R62.7 Adult failure to thrive; F41.1 Generalized anxiety disorder; S81.802A Unspecified open wound, left lower leg, initial encounter; Z99.3 Dependence on wheelchair; Z88.1 Allergy status to other antibiotic agents; Z79.01 Long term (current) use of anticoagulants